=== PATIENT | female | born 1950 | race Two or more races ===

== ENCOUNTER → 2018-03-25 | Outpatient (CLI) | payer OTHER | END | disposition home or self-care (01) | LOC: NUCLEAR 07:21 | DX: R07.89 Other chest pain (principal); E11.9 Type 2 diabetes mellitus without complications; J45.998 Other asthma; I20.9 Angina pectoris, unspecified; I25.9 Chronic ischemic heart disease, unspecified | CPT/HCPCS: 78452; 93017; A9500; J1250 ==